=== PATIENT | male | born 1960 ===

== ENCOUNTER → 2021-06-24 09:52 | Outpatient (CLI) | payer OTHER, SELFPAY ==
[2021-06-24 19:58] LABS: COVID19 - ORCAS (NP or Nasal) Negative (Negative)
== END ==
PROVIDERS: Referring Provider Physician Assistant; Visit Provider Physician Assistant
DX: Z20.822 Contact with and (suspected) exposure to COVID-19 (principal)
CPT/HCPCS: U0003